=== PATIENT | female | born 1960 | race Caucasian/White ===

== ENCOUNTER 2017-08-14 01:48 | Outpatient (CLI) | payer OTHER ==
--- NOTE | 2017-08-14 11:20 | MMO ---
SCREENING MAMMOGRAPHY: DATE: 08/14/17. COMPARISON: 06/08/16, 05/11/15, and 03/17/14. HISTORY: Screening mammogram. FINDINGS: The patient's mammogram is interpreted with the assistance of computer-aided detection. Stable breast implants are noted with adjacent dystrophic calcification, left greater than right. Scattered fibroglandular densities are present. There is no dominant mass lesion or architectural di stortion. No concerning microcalcifications are evident. IMPRESSION: BI-RADS 2 - benign findings. Recommend annual screening mammography. POS: SIMNOE
== END 2017-08-14 01:49 | disposition home or self-care (01) ==
LOC: SCSMAMMO 01:48
PROVIDERS: ATTEND Family Medicine
DX: Z12.31 Encounter for screening mammogram for malignant neoplasm of breast (principal)
CPT/HCPCS: 77067; G0202

== ENCOUNTER 2018-08-12 09:31 | Outpatient (CLI) | payer OTHER ==
--- NOTE | 2018-08-12 11:20 | MMO ---
BILATERAL SCREENING MAMMOGRAMS: History: 58-year-old female for screening mammography. Comparison: 08-14-17, 06-08-16, 05-11-15 FINDINGS: Bilateral MLO and CC views of the breast as well as implant displacement views show scattered fibrogl andular breast tissue. There are calcifications along both implant capsules. Other benign appearing c alcifications are seen in the breast. There is no evidence of suspicious mass, suspicious cluster of microcalcifications, or area of architectural distortion. This study is interpreted with the assistance of computer aided detection. IMPRESSION: BIRADS category 2 - benign findings. Annual screening mammography is recommended. POS: SIMONE
== END 2018-08-12 09:32 | disposition home or self-care (01) ==
LOC: SCSMAMMO 09:31
PROVIDERS: ATTEND Family Medicine
DX: Z12.31 Encounter for screening mammogram for malignant neoplasm of breast (principal)
CPT/HCPCS: 77067

== ENCOUNTER 2019-07-20 11:42 | Outpatient (CLI) | payer OTHER ==
--- NOTE | 2019-07-20 12:08 | RAD ---
EXAM: 3 views of the left foot HISTORY: Foot pain after injury COMPARISON: None FINDINGS: 3 views of the left foot shows a fracture of the base of the fifth metatarsal. Mild overlyi ng soft tissue swelling is seen. No degenerative changes are present. Remodeling of the distal fibula is likely secondary to a remote fracture. IMPRESSION: Left fifth metatarsal fracture
== END 2019-07-20 11:43 | disposition home or self-care (01) ==
LOC: SCSRAD 11:42
PROVIDERS: ATTEND Nurse Practitioner Family
DX: M79.672 Pain in left foot (principal); S92.352A Displaced fracture of fifth metatarsal bone, left foot, initial encounter for closed fracture